=== PATIENT | female | born 1980 | race Two or more races ===

== ENCOUNTER 2024-10-25 10:13 | Outpatient (RCR) | payer MEDICAID, SELFPAY ==
--- NOTE | 2024-10-25 12:59 | CTCCONSULT_ITS ---
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 [facility]Anastacia Zamora [employer] Reason for consultation. 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 History of Present Illness: Patient is a 43-year-old lady who had a tumor growing in her back which was removed on July 28, 2024 at health care facility in [facility]. 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 Patient reportedly was recommended to have postop radiation but [place] and would like to get cancer treatment [place] the [place]. Patient had postop comprehensive whole body screening MRI performed in [place] which revealed an ill-defined lesion in the posterior superficial soft tissue of the neck September 15, 2024. Also had complex lesion right kidney polypoid lesion endometrial cavity as well as vertebral hemangiomas. Also had an ultrasound of posterior neck performed 10/08/2024 which revealed an ill-defined 1 x 3 cm area of abnormal heterogeneous echogenicity with possible cellulitis or developing abscess not excluded. Patient is now referred to the cancer center. Past Medical History: History of dermatofibrosarcoma protuberans removed in [place] in July with adjuvant radiation therapy recommended not yet performed. Family history. No history of major cancers. Social History: Worked as guidance secretary denies smoking drinking bilingual Review of Systems: Has no pain in neck or elsewhere Physical Exam: General: Well-appearing lady no acute distress HEENT: He is a visible scar about 7 cm long. There is no palpable mass or fluctuance noted. CV: Chest clear to auscultation heart regular rate and rhythm ABD: Soft no organomegaly tenderness EXT: No sinus clubbing or edema Assessment: 1. Dermatofibromasarcoma protuberans excised in the posterior lower neck July 28, 2024 in [facility]. Postop radiation reportedly recommended 2. Pathology report in Salvadorean. Will attempt to have this translated into Yi. 3. Majority are low-grade and treated surgically but sometimes requires postop radiation therapy to prevent local recurrence. Rarely do they metastasize. 4. Told patient it would take several weeks or longer to try to get slides blocks transferred for review by [place] pathologist before we could offer any adjuvant therapy. It would be better to get adjuvant radiation therapy in [place] if this is what the doctors recommended now. Patient will speak to the doctors there as well as bringing the slides back to [place] herself. 5. Postop imaging studies both MRI and ultrasound suggested a growth either residual tumor or inflammatory process. On my exam today there appears to be no such growth or induration. Nevertheless this should be evaluated by the doctors in [place] with imaging study to see if any further surgical procedure be performed prior to radiation. 6. I gave patient 3-month follow-up, for surveillance following any procedure that would be done in [place], and the review of the slides that hopefully can be transferred here. ; [facility] Electronically signed by: Ruddy Castillo MD, LAURAR 10/25/2024 12:57 PM
== END 2024-11-18 23:59 | disposition home or self-care (01) ==
LOC: SCTC 10:13
PROVIDERS: PCP Obstetrics & Gynecology; Referring Provider Obstetrics & Gynecology; Visit Provider Radiology Therapeutic Radiology
DX: C44.49 Other specified malignant neoplasm of skin of scalp and neck (principal)
CPT/HCPCS: 99213; G0463